=== PATIENT | male | born 1985 | race Caucasian/White ===

== ENCOUNTER 2018-03-05 13:16 | Emergency (ER) | payer OTHER ==
[~2018-03-05] VITALS: Ht 182.9 cm; Wt 115.3 kg
[~2018-03-05 13:16] MED LIST: BACTRIM,SEPT1 TABLET PO; CEPHALEXIN500 MG PO; DILAUDID4 MG PO; HYDROXYZINE PAM50 MG PO; INDOCIN25 MG PO; KEFLEX500 MG PO; MOTRIN800 MG PO; NAPROSYN500 MG PO; NORCO 7.5/321 TABLET PO; PERCOCET 5/31 TABLET PO; PROAIR HFA8.5 GM IH; TYLENOL EXTRA500 MG PO; VALIUM5 MG PO; ZOFRAN4 MG PO
[2018-03-05 14:45] LABS: HEMOGLOBIN 15.3 G/DL (12.5-16.6); MCH 30.2 PG (29.0-34.0); MCV 88.8 FL (86-99); PLATELET COUNT 205 K/uL (156-360); RBC DIS.WIDTH-CV 13.2 % (11.8-14.6); RBC DIS.WIDTH-SD 42.6 % (39-53); RED BLOOD COUNT 5.07 M/uL (4.00-5.50); WHITE BLOOD COUNT 6.4 K/uL (4.1-10.2)
[2018-03-05 14:57] LABS: CHLORIDE 106 mEq/L (99-109); POTASSIUM 4.4 mEq/L (3.7-5.4); SODIUM 139 mEq/L (136-147)
[2018-03-05 14:59] LABS: GLUCOSE 95 mg/dL (70-99)
[2018-03-05 15:03] LABS: CREATININE 0.8 mg/dL (0.6-1.3); GFR ESTIMATE (CALCULATED) > 59 mL/min/ (58.99-99999)
[2018-03-05 15:04] LABS: UREA NITROGEN (BUN) 7 mg/dL (9-23)
[2018-03-05 15:06] LABS: TROP-I INTERPRETATION NEGATIVE; TROPONIN-I < 0.01 ng/mL (0.0-0.30)
[2018-03-05 16:05] LABS: APPEARANCE CLEAR ((CLEAR)); BILIRUBIN NEGATIVE; BLOOD NEGATIVE; COLOR STRAW ((YELLOW)); GLUCOSE (STRIP) NEGATIVE; KETONES NEGATIVE; LEUKOCYTES NEGATIVE; NITRITE NEGATIVE; PROTEIN (STRIP) NEGATIVE; SPECIFIC GRAVITY 1.006 (1.000-1.030); UCUL ADDED? NO; UROBILINOGEN 0.2 MG/DL (0.2-1.0)
[2018-03-05 16:50] VITALS: BP 130/82
== END 2018-03-05 16:52 | disposition home or self-care (01) ==
LOC: EME 13:16
PROVIDERS: Emergency Medicine; Family Medicine
DX: R60.0 Localized edema (principal); F17.200 Nicotine dependence, unspecified, uncomplicated; H91.91 Unspecified hearing loss, right ear; F12.10 Cannabis abuse, uncomplicated
CPT/HCPCS: 71046; 80048; 81003; 83880; 84484; 85027; 93005; 93970; 99281; 99284